=== PATIENT | female | born 1980 ===

== ENCOUNTER 2022-05-18 05:30 | Day surgery (SDC) | payer OTHER | END 2022-05-18 10:00 | disposition home or self-care (01) | LOC: AMB-ENDOS 05:30 | PROVIDERS: ATTEND Surgery | DX: R10.13 Epigastric pain (principal); K29.50 Unspecified chronic gastritis without bleeding; K44.9 Diaphragmatic hernia without obstruction or gangrene; Z88.2 Allergy status to sulfonamides; Z20.822 Contact with and (suspected) exposure to COVID-19 ==